=== PATIENT | female | born 1955 | race Caucasian/White ===

== ENCOUNTER 2016-09-22 08:25 | Day surgery (SDC) | payer OTHER ==
[~2016-09-22] VITALS: Ht 162.6 cm; Wt 77.1 kg
[~2016-09-22 08:25] MED LIST: AMLO5TAB2 PO; CARV6.2551 PO; HYDR12.527 PO; LEVO25TA6 PO; MULT-574 OR; PEDI1CHW PO; RIV15T PO; [UNRECOGNIZED DRUG - CODE] PO
[2016-09-22] MEDS ORDERED: LIDOCAINE VISCOUS 2% 15ML UD PO ONE (08:45)
[2016-09-22] MEDS ORDERED: fentaNYL CITRATE 100 MCG/2 ML VL IV ONE (08:45)
[2016-09-22] MEDS ORDERED: MIDAZOLAM HCL 5 MG/ML-1ML VIAL IV ONE (08:45)
[2016-09-22] MEDS ORDERED: MIDAZOLAM HCL 1MG/1ML-2 ML VIAL IV ONE (09:15)
[2016-09-22] MEDS ORDERED: NALOXONE HCL 0.4 MG/ML VIAL ONE (09:29)
[2016-09-22] MEDS ORDERED: FLUMAZENIL 0.1 MG/ML INJ 10ML MDV IV ONE (09:30)
[2016-09-22] MEDS ORDERED: diphenhdrAMINE HCL 50 MG/1 ML VL ONE (10:22)
== END 2016-09-22 12:30 | disposition home or self-care (01) ==
LOC: CATH 08:25
PROVIDERS: ATTEND Specialist
DX: I48.91 Unspecified atrial fibrillation (principal); I50.9 Heart failure, unspecified; I34.0 Nonrheumatic mitral (valve) insufficiency; I70.0 Atherosclerosis of aorta; I10 Essential (primary) hypertension
CPT/HCPCS: 92960; 93312; J1200; J2250; J3010; J7030